=== PATIENT | male | born 1960 | race Caucasian/White ===

== ENCOUNTER 2017-07-28 17:10 | Emergency (ER) | payer BC, OTHER ==
[~2017-07-28] VITALS: Ht 182.9 cm; Wt 88.5 kg
--- NOTE | ~2017-07-28 | EKG ---
[address] [address] ELECTROCARDIOGRAM REPORT Name: HAKAN GARRETT Room #: DEP [facility]#: [id number] Admission: 07/28/17 Attend Phys: Discharge: 07/28/17 Date of : 62 Report #: [id number] THIS REPORT FOR: //name// [facility] ED Test Date: 2017-07-28 Test Time: 17:32:49 Pat Name: HAKAN GARRETT Department: Room: Gender: M [employer] Machine Operator: [id number] : 1960 Requested By: Vlad Camp Order Number: [id number] MD: Sancho Shaffer Measurements Intervals [place] Rate: 66 P: 51 TN: 159 QRS: -25 QRSD: 103 T: 35 QT: 439 QTc: 460 Interpretive Statements Sinus rhythm Borderline left axis deviation Baseline wander in lead(s) V2 Compared to ECG 02/15/2014 21:08:20 Sinus tachycardia no longer present Left anterior fascicular block no longer present Electronically Signed On 07-29-2017 8:16:36 CDT by Sancho Shaffer [email or web address] <ELECTRONICALLY SIGNED> By: Sancho Shaffer MD, FACC 07/29/17 0816 1732 1732 Sancho Shaffer MD, [facility] /EPI
[~2017-07-28 17:10] MED LIST: EPZICOM1 TA1 PO; HYDROCODON-ACE1 EAC7; LIVALO4 MG PO; LOMOTIL TABLET1 EACH PO; NORVIR100 MG PO; REYATAZ100 MG PO; ZOFRAN4 MG PO
[2017-07-28] MEDS ORDERED: STRIBILD TABLE1 EACH PO (17:36)
[2017-07-28 17:38] LABS: ABSOLUTE NEUTROPHILS 7.3 thou/uL (1.4-8.2); BASOPHILS 0.3 % (0.0-2.0); EOSINOPHILS 1.1 % (0.0-3.0); HEMATOCRIT 47.6 % (42.0-52.0); HEMOGLOBIN 16.7 gm/dL (14.0-18.0); LYMPHOCYTES 11.8 % (24.0-44.0); MCH 30.1 pg (26.0-34.0); MCV 85.9 fL (80.0-100.0); MONOCYTES 7.7 % (1.0-8.0); PLATELET COUNT 142 thou/uL (150-400); POLYS 79.1 % (36.0-66.0); RBC 5.54 mil/uL (4.50-6.00); RDW 13.4 % (10.5-14.5); WBC 9.3 thou/uL (4.0-11.0)
[2017-07-28] MEDS ORDERED: DEPO-TESTO200 MG/1 M IM (17:38)
[2017-07-28 17:43] LABS: MANUAL DIFF NO
[2017-07-28 17:44] LABS: CALCIUM 8.8 mg/dL (8.5-10.1); CREATININE 1.1 mg/dL (0.7-1.3); POTASSIUM 3.6 mmol/L (3.5-5.1)
== END 2017-07-28 19:38 | disposition home or self-care (01) ==
LOC: ER 17:10
PROVIDERS: Emergency Medicine
DX: R55 Syncope and collapse (principal); E86.0 Dehydration; J45.909 Unspecified asthma, uncomplicated; Z21 Asymptomatic human immunodeficiency virus [HIV] infection status; Z90.49 Acquired absence of other specified parts of digestive tract

== ENCOUNTER → 2020-09-05 | Outpatient (CLI) | payer OTHER ==
[~2020-09-05] MED LIST changes: +DEPO-TESTO200 MG/1 M IM; +STRIBILD TABLE1 EACH PO
== END ==
LOC: LAB 11:03
PROVIDERS: ATTEND Anesthesiology
DX: Z01.812 Encounter for preprocedural laboratory examination (principal); Z20.828 Contact with and (suspected) exposure to other viral communicable diseases

== ENCOUNTER → 2021-02-25 | Outpatient (CLI) | payer OTHER | LOC: SJCVCIMAG 08:33 | PROVIDERS: ATTEND Internal Medicine Cardiovascular Disease | DX: E78.5 Hyperlipidemia, unspecified (principal); Z72.89 Other problems related to lifestyle; Z79.899 Other long term (current) drug therapy ==